=== PATIENT | female | born 1975 | race Caucasian/White ===

== ENCOUNTER 2016-05-28 12:45 | Emergency (ER) | payer OTHER ==
[~2016-05-28 12:45] MED LIST: ALBUTEROL SULF8.5 GM IH; ALBUTEROL2.5 MG/3 M IH; ATARAX,VISTARIL50 MG PO; DOXYCYCLINE HY100 M3 PO; FLAGYL500 MG PO; MEDROL DOSEPAK4 MG PO; NORCO 5/3251 TABLET PO; OXYCODONE HCL15 MG PO; PERCOCET 10/1 TABLET PO; PERCOCET 5/31 TABLET PO; PREDNISONE10 MG PO; PREDNISONE20 MG PO; PREDNISONE50 MG PO; PROAIR HFA8.5 GM IH; PROVENTIL,2.5 MG/3 M IH; TESSALON PERLE100 MG PO; TESSALON200 MG PO; VENTOLIN HFA18 GM IH; ZOFRAN4 MG PO; ZYRTEC5 MG PO
== END 2016-05-28 13:37 | disposition left against medical advice (07) ==
LOC: EME 12:45
DX: R68.89 Other general symptoms and signs (principal); Z53.21 Procedure and treatment not carried out due to patient leaving prior to being seen by health care provider

== ENCOUNTER 2016-07-05 20:32 | Emergency (ER) | payer OTHER ==
[~2016-07-05] VITALS: Ht 162.6 cm; Wt 87.2 kg
[2016-07-05] MEDS ORDERED: NAPROXEN500 MG PO (21:24)
[2016-07-05 21:56] VITALS: BP 153/98
== END 2016-07-05 21:57 | disposition home or self-care (01) ==
LOC: EME 20:32
DX: M65.811 Other synovitis and tenosynovitis, right shoulder (principal); Z86.73 Personal history of transient ischemic attack (TIA), and cerebral infarction without residual deficits
CPT/HCPCS: 99281; 99283; J8540

== ENCOUNTER 2016-10-13 15:40 | Emergency (ER) | payer OTHER ==
[~2016-10-13] VITALS: Ht 162.6 cm; Wt 97.6 kg
[~2016-10-13 15:40] MED LIST changes: +NAPROXEN500 MG PO
[2016-10-13 16:23] LABS: HEMATOCRIT 38.2 % (36.0-46.0); MCH 26.6 PG (29.0-34.0); MCHC 31.7 G/DL (30.0-36.0); MEAN PLAT.VOLUME 8.6 uM^3 (9.5-12.4); PLATELET COUNT 345 K/uL (156-360); RBC DIS.WIDTH-CV 15.2 % (11.8-14.6); RBC DIS.WIDTH-SD 46.5 % (39-53); RED BLOOD COUNT 4.55 M/uL (3.80-5.20); WHITE BLOOD COUNT 13.9 K/uL (4.1-10.2)
[2016-10-13 16:29] LABS: CHLORIDE 103 mEq/L (99-109); POTASSIUM 4.2 mEq/L (3.7-5.4); SODIUM 138 mEq/L (136-147)
[2016-10-13 16:31] LABS: GLUCOSE 102 mg/dL (70-99)
[2016-10-13 16:32] LABS: ANION GAP 8 MEQ/L (2-14)
[2016-10-13 16:33] LABS: TOTAL BILIRUBIN 0.4 mg/dL (0.0-1.0)
[2016-10-13 16:34] LABS: ALKALINE PHOSPHATASE 71 IU/L (3-129)
[2016-10-13 16:35] LABS: GFR ESTIMATE (CALCULATED) > 59 mL/min/
[2016-10-13 16:36] LABS: UREA NITROGEN (BUN) 11 mg/dL (9-23)
[2016-10-13 16:45] LABS: QUANTITATIVE HCG < 4.0 MIU/ML
[2016-10-13 16:50] LABS: ADD MIUA? YES; BILIRUBIN NEGATIVE; BLOOD MODERATE; COLOR YELLOW ((YELLOW)); GLUCOSE (STRIP) NEGATIVE; KETONES NEGATIVE; LEUKOCYTES TRACE; NITRITE NEGATIVE; PROTEIN (STRIP) NEGATIVE; SPECIFIC GRAVITY 1.012 (1.000-1.030); UROBILINOGEN 0.2 MG/DL (0.2-1.0)
[2016-10-13 17:07] VITALS: BP 129/94
[2016-10-13 17:07] LABS: BACTERIA RARE /HPF; EPITHELIAL CELLS 1+ /HPF; MUCUS TRACE /LPF; RED BLOOD CELLS 0-5 /HPF (0-5); UCUL ADDED? NO; WHITE BLOOD CELLS 0-5 /HPF (0-5)
[2016-10-13 17:16] LABS: DIRECT BILIRUBIN 0.1 mg/dL (0.0-0.3); LIPASE 17 U/L (1.0-51.0)
== END 2016-10-13 17:08 | disposition left against medical advice (07) ==
LOC: EME 15:40
DX: R10.9 Unspecified abdominal pain (principal); Z53.21 Procedure and treatment not carried out due to patient leaving prior to being seen by health care provider
CPT/HCPCS: 80053; 81003; 82248; 83690; 84702; 85027; 99281